=== PATIENT | male | born 1950 | race Caucasian/White ===

== ENCOUNTER 2019-07-29 12:47 | Emergency (ER) | payer MEDICARE ==
[~2019-07-29] VITALS: Ht 175.3 cm; Wt 75.0 kg
[2019-07-29] MEDS ORDERED: DIATR MEGLU/DIATRIZOATE SOLN 30ML GT ONE (17:00)
[2019-07-29] MEDS ORDERED: DIATR MEGLU/DIATRIZOATE SOLN 30ML ONE (17:08)
[2019-07-29 20:00] VITALS: BP 147/97
== END 2019-07-29 20:23 ==
LOC: ER 12:47
DX: K94.20 Gastrostomy complication, unspecified (principal); R47.02 Dysphasia; E11.9 Type 2 diabetes mellitus without complications; C80.1 Malignant (primary) neoplasm, unspecified
CPT/HCPCS: 43760; 74018; 99284; Q9963